=== PATIENT | male | born 1965 | race African-American/Black ===

== ENCOUNTER 2017-12-07 04:28 | Emergency (ER) | payer BC ==
[2017-12-07] MEDS: CEPHALEXIN 250 MG CAPSULE. PO (05:02)
[2017-12-07] MEDS: hydrOXYzine PAMOATE 25 MG CAPSULE PO (05:02)
[2017-12-07] MEDS ORDERED: CLOTRIMAZOLE 1% TOPICAL CREAM 15GM TUBE. TP (05:30)
== END 2017-12-07 05:16 | disposition home or self-care (01) ==
LOC: ER 04:28
DX: R21 Rash and other nonspecific skin eruption (principal); F31.9 Bipolar disorder, unspecified
CPT/HCPCS: 99283; Q0177